=== PATIENT | female | born 1985 | race Caucasian/White ===

== ENCOUNTER 2025-05-30 14:49 | Inpatient (IN) ==
--- NOTE | 2025-05-30 15:17 | Emergency Department Note ---
Impression & Plan Acute appendicitis, Right lower quadrant abdominal pain ED Provider Note HISTORY OF PRESENT ILLNESS: Patient is a 39-year-old female presenting with right lower quadrant abdominal pain. Patient was seen at [facility] [address] 4 days ago and diagnosed with appendicitis. She states that she was admitted for 24 hours and was discharged on Augmentin and has been taking the medication as prescribed. She had a follow-up with her primary care provider this morning and was referred to the emergency department because her symptoms have not gotten any better. She states that she has had persistent right lower quadrant abdominal pain. She has had chills throughout the week. Reports persistent nausea all week and has not had much in terms of an appetite. Denies any vomiting or diarrhea. Denies any history of abdominal surgeries. Denies any dysuria or hematuria. ROS: as above PHYSICAL EXAM: Constitutional: Patient appears in no acute distress. HENT: Head: Normocephalic and atraumatic. Eyes: EOMI, PERRL Mouth/Throat: Mucous membranes moist. Neck: Trachea midline. Neck supple. Cardiovascular: RRR, No murmurs, rubs or gallops. Intact distal pulses. Pulmonary/Chest: No respiratory distress. Breath sounds clear and equal bilaterally. No wheezes or rales. Abdominal: Abdomen soft, no rebound or guarding. RLQ TTP Musculoskeletal: No edema, tenderness or deformity noted. Skin: Warm and dry. No rash, erythema, pallor or cyanosis Psychiatric: Appropriate mood and affect for situation. Neurological: Alert and keenly responsive. CN II-XII grossly intact, moving all extremities equally and fully. MDM: - Vitals signs showed hypertension - History obtained via patient. History as above. - Chronic conditions affecting care: Asthma; depression - Differential diagnoses include, but are not limited to: appendicitis; diverticulitis; ectopic ; ovarian cyst; ovarian torsion; ureteral calculi - Order placed for continuous cardiac monitoring. At this time, monitor showed rate of 72 bpm with normal sinus rhythm, per my interpretation. - External medical records reviewed. - Laboratory workup interpreted by myself showed normal WBC; stable electrolytes; normal AST/ALT; normal lipase; negative hCG - UA negative for infection - CT abdomen/pelvis with IV contrast showed mild acute appendicitis without perforation or abscess - Discussed case with general surgeon cartoon animator, Dr. Magallon, at 16:56. He reports that given patient's last PO intake was 7 am, he will plan to take patient to OR for appendectomy. - Patient given dose of IV zosyn for pre-OR antibiotics. - Patient taken to OR with general surgery. Please see their documentation for final disposition. ASSESSMENT AND PLAN: Diagnosis: acute appendicitis; RLQ abdominal pain Plan: to OR Past Med/Surg History Problem List (Updated 05/30/25 @ 16:49 by Daphne Danielson MD) Right lower quadrant abdominal pain (Acute) Acute appendicitis (Acute) Menorrhagia Medical History (Updated 05/30/25 @ 16:49 by Daphne Danielson MD) Asthma Depression Surgical History (Updated 12/05/23 @ 14:48 by Delia Teran LPN) S/P wisdom tooth extraction S/P dilation and curettage Family History (Updated 12/05/23 @ 14:49 by Delia Teran LPN) Aunt Breast cancer Grandmother (Paternal) Breast cancer Sister Cervical cancer Denies family history of Ovarian cancer Prostate cancer Myocardial infarction Colorectal cancer Uterine cancer Social History (Updated 12/05/23 @ 15:10 by Dmaaris Conte MD) Smoking Status: Never smoker Do You Dip or Chew Tobacco: No; Hx Alcohol Use: Yes Alcohol Intake Frequency Comment: rarely Hx Substance Use: No Preferred Language: Serbian marital status: How many Children do You have: 4 Feels Safe at Home: Yes Diet Comment: avoids pork, little dairy caffeine: Yes Dental Care, Regularly: Yes Physical Activity Frequency: 3-4 Times per Week Seatbelt Use: always Sunscreen Use: Yes Allergies Allergies Allergy/AdvReac Type Severity Reaction Status Date / Time codeine Allergy Verified 12/05/23 14:44 Home Meds Home Medications Medication Instructions Recorded Confirmed semaglutide 7 mg tablet (Rybelsus) 0 mg PO DAILY 12/05/23 05/30/25 amoxicillin 875 mg-potassium 1 tab PO BID for 10 days 05/30/25 05/30/25 clavulanate 125 mg tablet Results & Data (ED) Vital Signs Vital Signs - 24 hr 05/30/25 14:58 05/30/25 15:36 05/30/25 15:36 Temperature 36.6 C Temperature Source Temporal Artery Scan Pulse Rate 71 Pulse Rate [Apical] 63 Respiratory Rate 18 14 Respiratory Effort / Characteristics Non-Labored Spontaneous Respiratory Depth Normal Respiratory Pattern Regular Blood Pressure 157/94 H Blood Pressure [Left Arm] 119/70 Blood Pressure Mean 115 Blood Pressure Mean [Left Arm] 86 Pulse Oximetry 99 99 Oxygen Delivery Method Room Air Room Air Room Air Sepsis Recent Fever Within 48 Hours No Sepsis New/Unexplained Change in Mental Status No Sepsis Action Taken by Nursing No Action Required 05/30/25 16:32 05/30/25 16:38 Temperature Temperature Source Pulse Rate 67 67 Pulse Rate [Apical] Respiratory Rate 18 Respiratory Effort / Characteristics Respiratory Depth Respiratory Pattern Blood Pressure 122/62 Blood Pressure [Left Arm] Blood Pressure Mean 71 Blood Pressure Mean [Left Arm] Pulse Oximetry 98 Oxygen Delivery Method Sepsis Recent Fever Within 48 Hours Sepsis New/Unexplained Change in Mental Status Sepsis Action Taken by Nursing Laboratory Data 05/30/25 15:35 05/30/25 15:35 Lab Results 05/30/25 05/30/25 05/30/25 Range/Units 15:26 15:35 Unknown WBC 8.08 (4.8-10.8) K/ul RBC 5.02 (4.20-5.40) M/uL Hgb 13.4 (12.0-16.0) g/dl Hct 41.1 (37.0-47.0) % MCV 81.9 (80.0-100.0) fL MCH 26.7 (25.0-34.0) pg MCHC 32.6 (32.0-36.0) g/dL RDW Std Deviation 37.4 (36.4-46.3) fL RDW Coeff of Sean 12.6 (11.5-14.5) % Plt Count 255 (130-400) K/uL MPV 10.5 (9.4-12.4) fL Immature Gran % (Auto) 0.4 % Neut % (Auto) 70.7 % Lymph % (Auto) 18.8 % [place] % (Auto) 7.1 % Eos % (Auto) 2.5 % Baso % (Auto) 0.5 % Neut # (Auto) 5.72 (1.40-6.50) K/uL Lymph # (Auto) 1.52 (1.20-3.40) K/uL [place] # (Auto) 0.57 (0.11-0.59) K/uL Eos # (Auto) 0.20 (0.00-0.50) K/uL Baso # (Auto) 0.04 (0.00-0.20) K/uL Immature Gran # (Auto) 0.03 (0.01-0.20) K/uL Sodium 135 L (136-145) mmol/L Potassium 3.9 (3.5-5.1) mmol/L Chloride 101 (98-107) mmol/L Carbon Dioxide 25 (21-32) mmol/L Anion Gap 9 (3-11) BUN 8 (6-23) mg/dl Creatinine 0.62 (0.6-1.2) mg/dl Est Cr Clr Drug Dosing 143.2 ml/min eGFR 116.10 BUN/Creatinine Ratio 12.9 (10-20) Glucose 103 H (70-99(Fasting)) mg/dl Calcium 10.0 (8.6-10.3) mg/dl Total Bilirubin 0.4 (0.2-1.0) mg/dl AST 21 (13-39) U/L ALT 16 (7-52) U/L Alkaline Phosphatase 66 (34-104) U/L Total Protein 8.5 H (6.0-8.3) gm/dl Albumin 4.3 (3.4-5.0) gm/dl Globulin 4.2 H (2.5-4.0) gm/dl Albumin/Globulin Ratio 1.0 (0.9-2) Lipase 15 (11-82) U/L HCG, Qual Negative (Negative) Urine Color Dark Yellow Urine Appearance Clear (Clear) Urine pH 5.5 (4.5-7.5) Ur Specific [place] 1.015 (1.000-1.030) Urine Protein Negative (Negative) Urine Glucose (UA) Negative (Negative) Urine Ketones 2+ H (Negative) Urine Blood Negative (Negative) Urine Nitrite Negative (Negative) Urine Bilirubin Negative (Negative) Urine Urobilinogen Negative (Negative) Ur Leukocyte Esterase Negative (Negative) POC Ur Test NEG (NEG) Urine Comment Administered Medications Discontinued Medications Ioversol (Optiray 320 100ml) 93 ml IV ONCE ONE Stop: 05/30/25 16:24 Last Admin: 05/30/25 16:24 Dose: 93 ml Documented By: WESLEY Imaging Data Radiologist's Impression: Abdomen/Pelvis CT 05/30/25 15:10 Clinical History: Right lower quadrant pain Technique: Axial computed tomography images were obtained of the abdomen and pelvis after the administration of intravenous contrast. No prior CT is available for comparison. Findings: The liver is overall of normal size, attenuation, and contour with no sign of cirrhosis or significant fatty infiltration. No liver mass lesion is seen. The portal vein is patent. The gallbladder appears unremarkable. No bile duct dilatation is noted. The spleen is of normal size. No focal splenic lesion is evident. The pancreas appears normal with no sign of acute or chronic pancreatitis and no mass lesion noted. The pancreatic duct is of normal caliber. There is a small 8 mm low-attenuation right adrenal nodule, likely a benign adenoma. The left adrenal gland appears normal No definite renal or proximal ureteral calculi are seen on this contrast-enhanced study. There is no hydronephrosis or perinephric stranding. No renal mass lesion is identified. The aorta is of normal caliber. No abdominal adenopathy is seen. The stomach appears normal. There is no sign of small bowel obstruction. The colon appears unremarkable. The appendix is mildly dilated, measuring up to 8 mm. There is mild adjacent soft tissue stranding. No free intraperitoneal air is identified. There is a small amount of free pelvic fluid No distal ureteral or bladder calculi are seen. No bladder mass lesion is evident. The iliac arteries are of normal caliber. No pelvic adenopathy is noted. The endometrium appears to be at the upper limit of normal in thickness, measuring approximately 13 mm The lungs bases appear clear. No fracture is identified. No focal osseous lesion is seen Impression: 1. Apparent mild acute appendicitis. There is no perforation or abscess formation 2. Small right adrenal nodule, likely a benign adenoma 3. Small amount of free pelvic fluid, which may be physiologicg Electronically signed by Francis Hollingsworth 05-30-2025 4:42 PM Discharge Plan Visit Data Chief Complaint: Referred by Doctor Stated Complaint: APPENDICITIS, REF BY DOC ED Provider: Daphne Danielson Discharge Problem: Acute appendicitis, Right lower quadrant abdominal pain Patient Disposition: Being Evaluated by Surgeon Condition: Fair Forms Stand Alone Forms: My [employer] Prescriptions Prescriptions: No Action Rybelsus 7 mg tablet 0 mg PO DAILY Patient Comments: 05/30- no fill history unable to verify amoxicillin-pot clavulanate 875-125 mg tablet 1 tab PO BID Referrals Referrals: Hudson Quintero [Primary Care Provider] -
[2025-05-30 15:45] LABS: Appearance Urine Clear (Clear); Glucose Urine UA Negative (Negative)
[2025-05-30 15:52] LABS: Hematocrit (blood only) 41.1 % (37.0-47.0); Hemoglobin 13.4 g/dl (12.0-16.0); Immature Granulocytes # (auto) 0.03 K/uL (0.01-0.20); Immature Granulocytes % (auto) 0.4 %; Mean Corpuscular Hemoglobin 26.7 pg (25.0-34.0); Mean Corpuscular Volume 81.9 fL (80.0-100.0); Platelet Count 255 K/uL (130-400); RDW Standard Deviation 37.4 fL (36.4-46.3); Red Blood Count 5.02 M/uL (4.20-5.40); White Blood Count 8.08 K/ul (4.8-10.8)
[2025-05-30 16:08] LABS: Pregnancy Test, Serum Negative (Negative)
[2025-05-30 16:10] LABS: Alanine Aminotransferase 16.0 U/L (7-52); Albumin Globulin Ratio 1.0 (0.9-2); Albumin Level 4.3 gm/dl (3.4-5.0); Alkaline Phosphatase 66.0 U/L (34-104); Anion Gap 9.0 (3-11); Bilirubin,Total 0.4 mg/dl (0.2-1.0); Blood Urea Nitrogen 8.0 mg/dl (6-23); Calcium 10.0 mg/dl (8.6-10.3); Carbon Dioxide 25.0 mmol/L (21-32); Chloride 101.0 mmol/L (98-107); Creatinine Clr Calc Pharmacy 143.2 ml/min; Globulin 4.2 gm/dl (2.5-4.0); Glucose 103.0 mg/dl (70-99(Fasting)); Lipase 15.0 U/L (11-82); Potassium 3.9 mmol/L (3.5-5.1); Sodium 135.0 mmol/L (136-145); Total Protein 8.5 gm/dl (6.0-8.3)
[2025-05-30] MEDS: OPTIRAY 320 100ml IV ONE (16:24)
--- NOTE | 2025-05-30 16:43 | CT Scan Report ---
Clinical History: Right lower quadrant pain Technique: Axial computed tomography images were obtained of the abdomen and pelvis after the administration of intravenous contrast. No prior CT is available for comparison. Findings: The liver is overall of normal size, attenuation, and contour with no sign of cirrhosis or significant fatty infiltration. No liver mass lesion is seen. The portal vein is patent. The gallbladder appears unremarkable. No bile duct dilatation is noted. The spleen is of normal size. No focal splenic lesion is evident. The pancreas appears normal with no sign of acute or chronic pancreatitis and no mass lesion noted. The pancreatic duct is of normal caliber. There is a small 8 mm low-attenuation right adrenal nodule, likely a benign adenoma. The left adrenal gland appears normal No definite renal or proximal ureteral calculi are seen on this contrast-enhanced study. There is no hydronephrosis or perinephric stranding. No renal mass lesion is identified. The aorta is of normal caliber. No abdominal adenopathy is seen. The stomach appears normal. There is no sign of small bowel obstruction. The colon appears unremarkable. The appendix is mildly dilated, measuring up to 8 mm. There is mild adjacent soft tissue stranding. No free intraperitoneal air is identified. There is a small amount of free pelvic fluid No distal ureteral or bladder calculi are seen. No bladder mass lesion is evident. The iliac arteries are of normal caliber. No pelvic adenopathy is noted. The endometrium appears to be at the upper limit of normal in thickness, measuring approximately 13 mm The lungs bases appear clear. No fracture is identified. No focal osseous lesion is seen Impression: 1. Apparent mild acute appendicitis. There is no perforation or abscess formation 2. Small right adrenal nodule, likely a benign adenoma 3. Small amount of free pelvic fluid, which may be physiologicg Electronically signed by Francis Hollingsworth 05-30-2025 4:42 PM
[2025-05-30] MEDS: PIPERACILLIN/TAZOBACTAM 4.5 GM/100 ML BAG IV ONE (17:17)
--- NOTE | 2025-05-30 19:23 | History & Physical Report ---
Date of Service May 30, 2025 Assessment & Plan (1) Acute appendicitis: Plan: Patient is a 39-year-old female with 5 days of RLQ abdominal pain. Recently seen and treated with IV antibiotics at [facility] for findings of appendicitis however once she was sent home on Monday her symptoms have been persistent without any improvement. The patient presented back to our emergency department today and upon workup again was found to have findings of acute appendicitis. Labs and imaging reviewed and patient's case was discussed with attending surgeon, Dr. Magallon. Will plan to admit patient to the surgical service for observation overnight. Will keep NPO, IV hydration, IV antibiotics, pain control, and antiemetics as needed. Will tentatively plan for appendectomy tomorrow and possible discharge post-operatively. History of Present Illness Chief Complaint: Abdominal pain The patient is a 39-year-old female who presented to the emergency department with right lower quadrant pain for the past 5 days . Patient states she was seen at [facility] in [place] on Monday where she was diagnosed with appendicitis. She was admitted and received 24 hours of IV antibiotics, she states she was feeling better and transitioned over to oral Augmentin and was sent home on Monday. Since being home she states she has felt about the same as she did in the hospital and when she had her follow up appointment with her PCP today she was instructed to come back to the emergency department for further evaluation. The patient states she has had ongoing nausea, chills, and persistent RLQ abdominal pain. She states the pain does radiate into her side and mid abdomen with certain movements. The patient was worked up in our emergency department and CT imaging was again concerning for acute appendicitis. The patient was seen and evaluated this evening at bedside. She is resting comfortably in bed, VSS, and is nontoxic appearing. The patient on exam is tend er in the RLQ however she has no signs of peritonitis. The patient states she has never had any abdominal surgeries in the past. Allergies Allergy/AdvReac Type Severity Reaction Status Date / Time codeine Allergy Verified 12/05/23 14:44 Home Medications Medication Instructions Recorded Confirmed Type semaglutide 7 mg tablet (Rybelsus) 0 mg PO DAILY 12/05/23 05/30/25 History amoxicillin 875 mg-potassium 1 tab PO BID for 10 days 10/24/25 10/24/25 History clavulanate 125 mg tablet Past Med/Surg History Problem List (Updated 05/30/25 @ 16:49 by Daphne Danielson MD) Right lower quadrant abdominal pain (Acute) Acute appendicitis (Acute) Menorrhagia Medical History (Updated 05/30/25 @ 16:49 by Daphne Danielson MD) Asthma Depression Surgical History (Updated 12/05/23 @ 14:48 by Delia Teran LPN) S/P wisdom tooth extraction S/P dilation and curettage Family History (Updated 12/05/23 @ 14:49 by Delia Teran LPN) Aunt Breast cancer Grandmother (Paternal) Breast cancer Sister Cervical cancer Denies family history of Ovarian cancer Prostate cancer Myocardial infarction Colorectal cancer Uterine cancer Social History (Updated 12/05/23 @ 15:10 by Damaris Conte MD) Smoking Status: Never smoker Do You Dip or Chew Tobacco: No; Hx Alcohol Use: Yes Alcohol Intake Frequency Comment: rarely Hx Substance Use: No Preferred Language: Bengali marital status: How many Children do You have: 4 Feels Safe at Home: Yes Diet Comment: avoids pork, little dairy caffeine: Yes Dental Care, Regularly: Yes Physical Activity Frequency: 3-4 Times per Week Seatbelt Use: always Sunscreen Use: Yes Review of Systems Constitutional: + chills; no fever and no weakness Respiratory: no cough and no chest congestion Cardiovascular: no chest pain, no palpitations and no syncope Gastrointestinal: + abdominal pain and + nausea; no vomiti ng Genitourinary: no difficulty urinating, no urinary urgency and no hematuria Physical Exam Constitutional: WD/WN, vitals as above Respiratory: normal respiratory effort, lungs clear to auscultation Cardiovascular: RRR, no murmur, no edema Gastrointestinal (Abdomen): Abdomen soft, nondistended, +TTP in the RLQ and mid-abdomen No rebound, guarding, or signs of peritonitis Skin: no rashes, warm and dry Results & Data Results & Data Vital Signs (Past 12 Hours) Vital Signs Temp Pulse Pulse Resp BP BP Pulse Ox 05/30/25 17:30 69 18 120/65 99 05/30/25 16:38 67 05/30/25 16:32 67 18 122/62 98 05/30/25 15:36 05/30/25 15:36 63 14 119/70 99 05/30/25 14:58 36.6 C 71 18 157/94 H 99 O2 Del Method 05/30/25 17:30 Room Air 05/30/25 16:38 05/30/25 16:32 05/30/25 15:36 Room Air 05/30/25 15:36 Room Air 05/30/25 14:58 Room Air Diagnostic Findings Clinical History: Right lower quadrant pain Technique: Axial computed tomography images were obtained of the abdomen and pelvis after the administration of intravenous contrast. No prior CT is available for comparison. Findings: The liver is overall of normal size, attenuation, and contour with no sign of cirrhosis or significant fatty infiltration. No liver mass lesion is seen. The portal vein is patent. The gallbladder appears unremarkable. No bile duct dilatation is noted. The spleen is of normal size. No focal splenic lesion is evident. The pancreas appears normal with no sign of acute or chronic pancreatitis and no mass lesion noted. The pancreatic duct is of normal caliber. There is a small 8 mm low-attenuation right adrenal nodule, likely a benign adenoma. The left adrenal gland appears normal No definite renal or proximal ureteral calculi are seen on this contrast-enhanced study. There is no hydronephrosis or perinephric stranding. No renal mass lesion is identified. The aorta is of normal caliber. No abdominal adenopathy is seen. The stomach appears normal. There is no sign of small bowel obstruction. The colon appears unremarkable. The appendix is mildly dilated, measuring up to 8 mm. There is mild adjacent soft tissue stranding. No free intraperitoneal air is identified. There is a small amount of free pelvic fluid No distal ureteral or bladder calculi are seen. No bladder mass lesion is evident. The iliac arteries are of normal caliber. No pelvic adenopathy is noted. The endometrium appears to be at the upper limit of normal in thickness, measuring approximately 13 mm The lungs bases appear clear. No fracture is identified. No focal osseous lesion is seen Impression: 1. Apparent mild acute appendicitis. There is no perforation or abscess formation 2. Small right adrenal nodule, likely a benign adenoma 3. Small amount of free pelvic fluid, which may be physiologicg Code Status & VTE Plan VTE Prophylaxis Plan VTE Prophylaxis will be ordered: Yes PG Care Time/CCT Total # of Minutes Spent Total Time Spent with Patient: Total time spent is greater than 50% in coordination of care (as documented) at patient's floor/unit and/or counseling patient: [place] [address] INT INP/OBS CARE MIN Patient Type New History Problem Focused Exam Problem Focused Medical Decision Making Straight Forward Diagnoses Acute appendicitis K35.80
[2025-05-30] MEDS ORDERED: MoRPHine SULFATE 4 MG/ML 1 ML CARP\\VIAL IV PRN (21:22)
[2025-05-30] MEDS ORDERED: ONDANSETRON INJ 2 MG/ML 2 ML VIAL IV PRN (21:22)
[2025-05-30] MEDS: SODIUM CHLORIDE 0.9% 1,000 ML IV SCH (21:44)
[2025-05-30] MEDS: PIPERACILLIN/TAZOBACTAM 4.5 GM/100 ML BAG IV SCH (22:05)
[2025-05-31 06:53] LABS: Hematocrit (blood only) 38.3 % (37.0-47.0); Hemoglobin 12.8 g/dl (12.0-16.0); Immature Granulocytes # (auto) 0.01 K/uL (0.01-0.20); Immature Granulocytes % (auto) 0.2 %; Mean Corpuscular Hemoglobin 27.8 pg (25.0-34.0); Mean Corpuscular Volume 83.3 fL (80.0-100.0); Platelet Count 242 K/uL (130-400); RDW Standard Deviation 38.1 fL (36.4-46.3); Red Blood Count 4.60 M/uL (4.20-5.40); White Blood Count 6.35 K/ul (4.8-10.8)
[2025-05-31 07:18] LABS: Anion Gap 7.0 (3-11); Blood Urea Nitrogen 9.0 mg/dl (6-23); Calcium 9.0 mg/dl (8.6-10.3); Carbon Dioxide 26.0 mmol/L (21-32); Chloride 104.0 mmol/L (98-107); Creatinine Clr Calc Pharmacy 125.8 ml/min; Glucose 93.0 mg/dl (70-99(Fasting)); Potassium 3.9 mmol/L (3.5-5.1); Sodium 137.0 mmol/L (136-145)
--- NOTE | 2025-05-31 09:04 | Anesthesiology Consultation ---
Date of Service May 31, 2025 Assessment & Plan (1) Encounter for pre-operative examination: Chart Review Chart Review: Acceptable Risk for Surgery History Surgery Operation Date: 05/31/25 11:00 Proposed Procedures p Laparoscopic Appendectomy - Lennox Magallon DO Height/Weight Height: 5 ft 1 in Weight: 113 kg Allergies Allergy/AdvReac Type Severity Reaction Status Date / Time codeine Allergy Verified 12/05/23 14:44 Medications Home Medications Medication Instructions Recorded Confirmed Last Taken semaglutide 7 mg tablet (Rybelsus) 0 mg PO DAILY 12/05/23 05/30/25 Unknown amoxicillin 875 mg-potassium 1 tab PO BID for 10 days 05/30/25 05/30/25 Unknown clavulanate 125 mg tablet Active Medications Generic Name Dose Route Start Last Admin Trade Name Freq PRN Reason Stop Dose Admin Piperacillin Sod/Tazobactam Sod 4.5 gm in 100 mls @ 25 mls/hr 05/30/25 22:00 05/31/25 05:45 Zosyn IV 06/09/25 21:59 25 mls/hr Q8H AKIN Administration Protocol Sodium Chloride 1,000 mls @ 100 mls/hr 05/30/25 21:22 05/31/25 08:08 Nss IV 06/02/25 21:21 100 mls/hr .Q10H AKIN Administration Past Medical History Medical History (Updated 05/31/25 @ 09:04 by Brayden Amaya MD) Menorrhagia Obesity Asthma Depression Past Family History Family History Aunt Breast cancer Grandmother (Paternal) Breast cancer Sister Cervical cancer Denies family history of Ovarian cancer Prostate cancer Myocardial infarction Colorectal cancer Uterine cancer Past Surgical History Surgical History S/P wisdom tooth extraction S/P dilation and curettage Social History Smoking Status: Never smoker Do You Dip or Chew Tobacco: No Hx Alcohol Use: No Hx Substance Use: No Physical Exam Vital Signs Last Vital Signs Temp 36.6 C 05/31/25 07:57 Pulse 62 05/31/25 07:57 Resp 18 05/31/25 07:57 BP 95/55 L 05/31/25 07:57 Pulse Ox 97 05/31/25 07:57 O2 Del Method Room Air 05/31/25 07:57 Testing Laboratory Results 05/31/25 05:46 05/31/25 05:46 Urine Color Dark Yellow 05/30/25 Unknown Urine Appearance Clear (Clear) 05/30/25 Unknown Urine pH 5.5 (4.5-7.5) 05/30/25 Unknown Ur Specific [place] 1.015 (1.000-1.030) 05/30/25 Unknown Urine Protein Negative (Negative) 05/30/25 Unknown Urine Glucose (UA) Negative (Negative) 05/30/25 Unknown Urine Ketones 2+ (Negative) H 05/30/25 Unknown Urine Nitrite Negative (Negative) 05/30/25 Unknown Ur Leukocyte Esterase Negative (Negative) 05/30/25 Unknown 05/30/25 15:26 POC Ur Test NEG
[2025-05-31] MEDS ORDERED: DEXAMETHASONE SOD INJ 4 MG/ML VIAL ONE (09:20)
[2025-05-31] MEDS ORDERED: LIDOCAINE 2% 2 ML VIAL/AMP(20MG/ML) INFIL ONE (09:20)
[2025-05-31] MEDS ORDERED: ONDANSETRON INJ 2 MG/ML 2 ML VIAL ONE (09:20)
[2025-05-31] MEDS ORDERED: MIDAZOLAM HCL 1 MG/ML 2ML VIAL ONE (09:20)
[2025-05-31] MEDS ORDERED: ROCURONIUM BROMIDE 10 MG/ML 5 ML VIAL IV ONE (09:20)
[2025-05-31] MEDS ORDERED: PROPOFOL IV EMULSION 10 MG/ML 20 ML VIAL IV ONE ×2 (09:20→10:55)
--- NOTE | 2025-05-31 09:43 | Surgery Progress Note ---
Date of Service May 31, 2025 Assessment & Plan (1) Acute appendicitis: Plan: Her CT images and results were personally viewed and interpreted by myself She has periappendiceal inflammation and dilated appendix consistent with appendicitis Will plan on a laparoscopic appendectomy, possible open Consent was obtained, risks discussed including bleeding, infection, abscess Admission and Anticipated Discharge Date Admission Date: May 30, 2025 Subjective Patient seen and examined. Still with some right lower quadrant pain. Afe brile. No nausea or vomiting. Review of Systems Constitutional: no fever and no chills Respiratory: no cough and no dyspnea Cardiovascular: no chest pain and no dyspnea on exertion Gastrointestinal: + abdominal pain; no nausea and no vomit ing Genitourinary: no dysuria and no urinary urgency Integumentary: no acne, no lesions and no sores Psychiatric: no behavioral changes and no depression Hematologic / Lymphatic: no easy bleeding and no easy bruising Physical Exam Constitutional: WD/WN, vitals as above Respiratory: normal respiratory effort, lungs clear to auscultation Cardiovascular: RRR, no murmur, no edema Gastrointestinal (Abdomen): Inspection/Auscultation: abdomen normal to inspection; abdomen not distended Percussion/Palpation: + abdomen tender (Right lower quadrant) and abdomen soft; no guarding and no hernia Skin: no rashes, warm and dry Neurologic: PERRL, EOMI, accommodation nl, no face palsy, no dysarthria Results & Data Vital Signs (Past 12 Hours) Vital Signs Temp Pulse Resp BP Pulse Ox O2 Del Method 05/31/25 07:57 36.6 C 62 18 95/55 L 97 Room Air PG Care Time/CCT Total # of Minutes Spent Total Time Spent with Patient: Total time spent is greater than 50% in coordination of care (as documented) at patient's floor/unit and/or counseling patient: Coding Level of Care Code 92538 SUB INP/OBS CARE 2/35MIN Diagnoses Acute appendicitis K35.80
[2025-05-31] MEDS ORDERED: KETOROLAC 30 MG/ML VIAL IV PRN (10:18)
[2025-05-31] MEDS ORDERED: ATROPINE SULFATE 0.1 MG/ML 10ML SYR IV PRN (10:18)
[2025-05-31] MEDS ORDERED: SUGAMMADEX SODIUM 200 MG/2 ML VIAL IV ONE (11:05)
[2025-05-31] MEDS: BUPIVACAINE/EPINEPHRINE 0.25% 1:200,000 30 ML VIAL ONE (11:07)
[2025-05-31] MEDS ORDERED: KETOROLAC 30 MG/ML VIAL ONE (11:10)
--- NOTE | 2025-05-31 11:15 | Post Operative Brief Note ---
PG Immediate Post Op with CF Date of Surgery May 31, 2025 Pre & Post Diagnosis Operation Date: 05/31/25 11:00 Pre-Op Diagnosis: Acute appendicitis Post-Op Diagnosis: Acute appendicitis without perforation I identified the patient and participated in the time-out.: Yes Procedure Operation Date: 05/31/25 11:00 Actual Procedures p Laparoscopic Appendectomy(Not Applicable) - Lennox Magallon DO Surgeon Lennox Magallon DO Measurement Coordinator Ingrid Flores PA-C Estimated Blood Loss 5 Findings See Below Acute appendicitis without perforation Specimens Specimen Description: A) Appendix Anesthesia Type General Complications none Disposition Disposition: Recovery Room
--- NOTE | 2025-05-31 11:18 | Operative Report ---
PG Post Operative Report Pre & Post Diagnosis Operation Date: 05/31/25 11:00 Pre-Op Diagnosis: Acute appendicitis Post-Op Diagnosis: Acute appendicitis without perforation I identified the patient and participated in the time-out.: Yes Procedure Operation Date: 05/31/25 11:00 Actual Procedures p Laparoscopic Appendectomy(Not Applicable) - Lennox Magallon DO Surgeon Lennox Magallon DO Certified Residential Medication Aide Ingrid Flores PA-C Estimated Blood Loss 5 Findings See Below Dilated mildly inflamed/injected appendix without perforation Specimens Appendix to pathology Drains None Anesthesia Type General Complications none Disposition Disposition: Recovery Room Indications 39-year-old female with acute appendicitis Description of Procedure The patient was brought to the OR and placed in the supine position and SCD's placed. At this time she underwent general endotracheal anesthesia without incident. At this time a Trammell catheter was placed under sterile conditions. Her abdomen was prepped and draped in the usual sterile fashion. She was given appropriate pre-operative antibiotics. A timeout was called, the procedure was verified as Laparoscopic appendectomy, possible open. Surgical, anesthesia and nursing teams agreed and the procedure was begun. After injection of 0.25% Marcaine with epinephrine, a supraumbilical incision was made using a #11 blade scalpel and carried down to the fascia with a hemostat. The abdomen was then elevated with towel clamps and entered using the Veress needle confirming position using the saline drop test. Pneumoperitoneum was established and 5mm trocar was placed. Laparoscope was introduced. No injury was seen from our entrance to the abdomen. At this time a 5mm suprapubic port and 12mm LLQ port were placed under direct visualization. The patient was placed in Trendelenburg and rotated to the left. At this time the appendix was visualized and the tip w as freed and elevated toward the abdominal wall. The appendix appeared inflamed, mildly dilated and injected consistent with appendicitis. A window was created in the mesoappendix at the base of the appendix. A 45mm strong load stapler was then fired across the base of the appendix which appeared healthy. The mesoappendix was then taken using Harmonic device. The appendix was then placed in an Endocatch bag and removed through the LLQ port site. Staple line was inspected and was intact. Hemostasis was complete. The 12 mm port was then closed at the fascial level using a 0 Vicryl suture using the suture passer. All ports were removed under direct visualization and no bleeding was noted. The abdomen was desufflated and the skin was closed using 4-0 Monocryl in a subcuticular fashion. Sterile dressings were applied. Trammell catheter was removed. The patient was then awakened from anesthesia having remained stable throughout the entire case and transported to PACU. All needle and sponge counts were correct x 2. The physician cable splicer assistant was present and scrubbed for the entire case. She was essential in positioning, prepping and draping the patient, retraction and exposure, driving the laparoscope, closure of the incisions and placement of the dressings. I attest to the content of the Intraoperative Record and any orders documented therein. Any exceptions are noted below.
[2025-05-31] MEDS: PROMETHAZINE HCL 6.25 MG in SODIUM CHLORIDE 0.9% 50 ML IV PRN (12:03)
--- NOTE | 2025-05-31 12:18 | Anesthesiology Progress Note ---
Date of Service May 31, 2025 Anesthesia Post Procedure Vital Signs Vital Signs: Temp Pulse Pulse Pulse Resp BP BP 05/31/25 12:10 70 19 120/75 05/31/25 12:00 75 16 125/66 05/31/25 11:50 72 16 125/71 05/31/25 11:40 74 23 120/62 05/31/25 11:30 36 C L 83 19 137/71 05/31/25 07:57 36.6 C 62 18 95/55 L 05/30/25 21:22 36.8 C 63 18 113/77 05/30/25 21:00 05/30/25 20:56 70 18 118/78 05/30/25 17:30 69 18 120/65 05/30/25 16:38 67 05/30/25 16:32 67 18 122/62 05/30/25 15:36 05/30/25 15:36 63 14 119/70 05/30/25 14:58 36.6 C 71 18 157/94 H Pulse Ox O2 Del Method O2 Flow Rate 05/31/25 12:10 98 Oxymask 2 05/31/25 12:00 100 Oxymask 2 05/31/25 11:50 100 Oxymask 4 05/31/25 11:40 100 Oxymask 8 05/31/25 11:30 95 Oxymask 8 05/31/25 07:57 97 Room Air 05/30/25 21:22 95 Room Air 05/30/25 21:00 Room Air 05/30/25 20:56 97 Room Air 05/30/25 17:30 99 Room Air 05/30/25 16:38 05/30/25 16:32 98 05/30/25 15:36 Room Air 05/30/25 15:36 99 Room Air 05/30/25 14:58 99 Room Air Pain Intensity Right Abdomen: Pain Intensity: 6 Abdomen: Pain Intensity: 6 Transfer of Care Handoff Completed per policy Notes Mental Status: alert / awake / arousable Patient Amnestic to Procedure: Yes Nausea / Vomiting: adequately controlled Pain: adequately controlled Airway Patency, RR, SpO2: stable & adequate BP & HR: stable & adequate Hydration State: stable & adequate Anesthetic Complications: no major complications apparent
[2025-05-31] MEDS: MoRPHine SULFATE 4 MG/ML 1 ML CARP\\VIAL IV PRN (13:22)
[2025-06-01 03:23] VITALS: RESP 16; O2SAT 96
[2025-06-01 07:46] VITALS: BP 98/60; TEMP 98.1
--- NOTE | 2025-06-01 09:55 | Surgery Progress Note ---
Date of Service June 01, 2025 Assessment & Plan (1) S/P appendectomy: Plan: She is doing well She will be discharged home, does not need any antibiotics She can follow-up with me in 2 weeks Admission and Anticipated Discharge Date Admission Date: May 30, 2025 Subjective Patient seen and examined. Pain controlled. Afebrile. Physical Exam Constitutional: WD/WN, vitals as above Gastrointestinal (Abdomen): Incisions healing well without erythema or drainage Results & Data Vital Signs (Past 12 Hours) Vital Signs Temp Pulse Resp BP Pulse Ox O2 Del Method O2 Flow Rate 06/01/25 07:45 36.7 C 77 16 98/60 L 96 Nasal Cannula 4 06/01/25 03:22 36.6 C 63 16 129/80 96 Room Air 05/31/25 22:40 36.9 C 70 18 120/77 93 Room Air PG Care Time/CCT Total # of Minutes Spent Total Time Spent with Patient: Total time spent is greater than 50% in coordination of care (as documented) at patient's floor/unit and/or counseling patient: Coding Level of Care Code 82370 Post Operative Follow-Up Diagnoses S/P appendectomy Z90.49
[2025-06-01] MEDS: ACETAMINOPHEN 325 MG TAB PO PRN (09:58)
[2025-06-01 10:28] VITALS: PULSE 81
== END 2025-06-01 10:51 | disposition home or self-care (01) | DRG 399 ==
LOC: ED 14:49 → 3N 17:42